=== PATIENT | female | born 1955 | race Caucasian/White ===

== ENCOUNTER 2020-08-28 13:17 | Emergency (ER) | payer MEDICARE ==
--- NOTE | 2020-08-28 13:29 | EDM.PDOC ---
ED HPI GENERAL MEDICAL PROBLEM - General Chief Complaint: Behavioral/Psych Stated Complaint: SUICIDE Time Seen by Provider: 08/28/20 13:18 Source of Information: Reports: Patient History Limitations: Reports: No Limitations - History of Present Illness INITIAL COMMENTS - FREE TEXT/NARRATIVE: She is a 65-year-old female who presents today after an attempted overdose. Patient pills that include gabapentin amitriptyline Xanax and memantine donepezil and hydrochlorothiazide overall 12 hours ago. Patient's been assessed the past of her . Patient presents today with his complaints of feeling tired but did not see any nausea vomiting no other complaints. - Related Data Allergies Allergy/AdvReac Type Severity Reaction Status Date / Time codeine Allergy Other Verified 08/28/20 13:52 Home Meds: Home Meds ALPRAZolam [Alprazolam] 0.25 mg PO DAILY PRN 08/28/20 [History] Amitriptyline [Elavil] 10 mg PO BEDTIME 08/28/20 [History] Donepezil HCl 5 mg PO BEDTIME 08/28/20 [History] Memantine HCl [Namenda] 5 mg PO DAILY 08/28/20 [History] PARoxetine HCL [Paroxetine HCl] 10 mg PO DAILY 08/28/20 [History] hydroCHLOROthiazide [Hydrochlorothiazide] 25 mg PO DAILY 08/28/20 [History] ED ROS GENERAL - Review of Systems Review Of Systems: See Below Constitutional: Reports: Fatigue HEENT: Reports: No Symptoms Respiratory: Reports: No Symptoms Cardiovascular: Reports: No Symptoms Endocrine: Reports: No Symptoms GI/Abdominal: Reports: No Symptoms : Reports: No Symptoms Musculoskeletal: Reports: No Symptoms Skin: Reports: No Symptoms Neurological: Reports: No Symptoms Psychiatric: Reports: No Symptoms Hematologic/Lymphatic: Reports: No Symptoms Immunologic: Reports: No Symptoms ED EXAM, GENERAL - Physical Exam Exam: See Below Exam Limited By: No Limitations General Appearance: Alert, WD/WN, No Apparent Distress Eye Exam: Bilateral Eye: EOMI, PERRL Respiratory/Chest: No Respiratory Distress, Lungs Clear, Normal Breath Sounds Cardiovascular: Normal Peripheral Pulses, Regular Rate, Rhythm GI/Abdominal: Normal Bowel Sounds, Soft, Non-Tender Extremities: Normal Range of Motion Neurological: Alert, Oriented, CN II-XII Intact #1 Interpretation EKG Date: 08/28/20 Time: 13:15 Rhythm: NSR Rate (Beats/Min): 79 ST-T: Normal #2 Interpretation EKG Date: 08/28/20 Time: 13:35 Rhythm: NSR Rate (Beats/Min): 76 ST-T: Normal Course - Vital Signs Last Recorded V/S: Last Vital Signs Temp 98 F 08/28/20 16:19 Pulse 76 08/28/20 17:23 Resp 16 08/28/20 16:51 BP 129/66 08/28/20 17:23 Pulse Ox 92 L 08/28/20 17:23 - Orders/Labs/Meds Orders: Active Orders 24 hr Category Date Time Status EKG Documentation Completion [RC] STAT Care 08/28/20 13:19 Active Labs: Laboratory Tests 08/28/20 08/28/20 08/28/20 Range/Units 13:31 13:31 13:31 WBC 6.33 (4.0-11.0) K/uL RBC 4.90 (4.30-5.90) M/uL Hgb 14.6 (12.0-16.0) g/dL Hct 46.0 (36.0-46.0) % MCV 93.9 (80.0-98.0) fL MCH 29.8 (27.0-32.0) pg MCHC 31.7 (31.0-37.0) g/dL RDW Std Deviation 47.6 (28.0-62.0) fl RDW Coeff of Marybeth 14 (11.0-15.0) % Plt Count 218 (150-400) K/uL MPV 10.50 (7.40-12.00) fL Neut % (Auto) 74.6 (48.0-80.0) % Lymph % (Auto) 15.0 L (16.0-40.0) % Baxter % (Auto) 7.1 (0.0-15.0) % Eos % (Auto) 3.0 (0.0-7.0) % Baso % (Auto) 0.3 (0.0-1.5) % Neut # (Auto) 4.7 (1.4-5.7) K/uL Lymph # (Auto) 1.0 (0.6-2.4) K/uL Baxter # (Auto) 0.5 (0.0-0.8) K/uL Eos # (Auto) 0.2 (0.0-0.7) K/uL Baso # (Auto) 0.0 (0.0-0.1) K/uL Nucleated RBC % 0.0 /100WBC Nucleated RBCs # 0 K/uL Lactate 2.3 H* (0.20-2.00) mmol/L Sodium 139 (136-145) mmol/L Potassium 3.8 (3.5-5.1) mmol/L Chloride 102 (98-107) mmol/L Carbon Dioxide 28.7 (21.0-32.0) mmol/L BUN 20 H (7.0-18.0) mg/dL Creatinine 1.2 H (0.6-1.0) mg/dL Est Cr Clr Drug Dosing 44.24 mL/min Estimated GFR (MDRD) 44.8 ml/min Glucose 115 H (74-106) mg/dL Calcium 8.9 (8.5-10.1) mg/dL Phosphorus 3.4 (2.6-4.7) mg/dL Magnesium 2.0 (1.8-2.4) mg/dL Total Bilirubin 0.4 (0.2-1.0) mg/dL AST 16 (15-37) IU/L ALT 24 (14-63) IU/L Alkaline Phosphatase 95 (46-116) U/L Creatine Kinase 79 (26-308) U/L Total Protein 7.3 (6.4-8.2) g/dL Albumin 3.2 L (3.4-5.0) g/dL Globulin 4.1 H (2.6-4.0) g/dL Albumin/Globulin Ratio 0.8 L (0.9-1.6) Salicylates 2.1 (0-20) mg/dL Urine Opiates Screen (NEGATIVE) Ur Oxycodone Screen (NEGATIVE) Urine Methadone Screen (NEGATIVE) Acetaminophen <2.0 ug/mL Ur Barbiturates Screen (NEGATIVE) Ur Phencyclidine Scrn (NEGATIVE) Ur Amphetamine Screen (NEGATIVE) U Methamphetamines Scrn (NEGATIVE) U Benzodiazepines Scrn (NEGATIVE) U Cocaine Metab Screen (NEGATIVE) U Marijuana (THC) Screen (NEGATIVE) Ethyl Alcohol < 3.0 mg/dL SARS-CoV-2 RNA (NATALIA) (NEGATIVE) 08/28/20 08/28/20 Range/Units 13:50 13:50 WBC (4.0-11.0) K/uL RBC (4.30-5.90) M/uL Hgb (12.0-16.0) g/dL Hct (36.0-46.0) % MCV (80.0-98.0) fL MCH (27.0-32.0) pg MCHC (31.0-37.0) g/dL RDW Std Deviation (28.0-62.0) fl RDW Coeff of Marybeth (11.0-15.0) % Plt Count (150-400) K/uL MPV (7.40-12.00) fL Neut % (Auto) (48.0-80.0) % Lymph % (Auto) (16.0-40.0) % Baxter % (Auto) (0.0-15.0) % Eos % (Auto) (0.0-7.0) % Baso % (Auto) (0.0-1.5) % Neut # (Auto) (1.4-5.7) K/uL Lymph # (Auto) (0.6-2.4) K/uL Baxter # (Auto) (0.0-0.8) K/uL Eos # (Auto) (0.0-0.7) K/uL Baso # (Auto) (0.0-0.1) K/uL Nucleated RBC % /100WBC Nucleated RBCs # K/uL Lactate (0.20-2.00) mmol/L Sodium (136-145) mmol/L Potassium (3.5-5.1) mmol/L Chloride (98-107) mmol/L Carbon Dioxide (21.0-32.0) mmol/L BUN (7.0-18.0) mg/dL Creatinine (0.6-1.0) mg/dL Est Cr Clr Drug Dosing mL/min Estimated GFR (MDRD) ml/min Glucose (74-106) mg/dL Calcium (8.5-10.1) mg/dL Phosphorus (2.6-4.7) mg/dL Magnesium (1.8-2.4) mg/dL Total Bilirubin (0.2-1.0) mg/dL AST (15-37) IU/L ALT (14-63) IU/L Alkaline Phosphatase (46-116) U/L Creatine Kinase (26-308) U/L Total Protein (6.4-8.2) g/dL Albumin (3.4-5.0) g/dL Globulin (2.6-4.0) g/dL Albumin/Globulin Ratio (0.9-1.6) Salicylates (0-20) mg/dL Urine Opiates Screen NEGATIVE (NEGATIVE) Ur Oxycodone Screen NEGATIVE (NEGATIVE) Urine Methadone Screen NEGATIVE (NEGATIVE) Acetaminophen ug/mL Ur Barbiturates Screen NEGATIVE (NEGATIVE) Ur Phencyclidine Scrn NEGATIVE (NEGATIVE) Ur Amphetamine Screen NEGATIVE (NEGATIVE) U Methamphetamines Scrn NEGATIVE (NEGATIVE) U Benzodiazepines Scrn POSITIVE (NEGATIVE) U Cocaine Metab Screen NEGATIVE (NEGATIVE) U Marijuana (THC) Screen NEGATIVE (NEGATIVE) Ethyl Alcohol mg/dL SARS-CoV-2 RNA (NATALIA) NEGATIVE (NEGATIVE) Meds: Medications Discontinued Medications Generic Name Dose Route Start Last Admin Trade Name Freq PRN Reason Stop Dose Admin Cephalexin 500 mg 08/28/20 14:35 08/28/20 14:44 Cephalexin 500 Mg Cap PO 08/28/20 14:36 Not Given ONETIME ONE Sodium Chloride 1,000 mls @ 1,000 mls/hr 08/28/20 14:17 08/28/20 14:22 Normal Saline IV 08/28/20 15:16 1,000 mls/hr .Bolus ONE Administration Trimethoprim/Sulfamethoxazole 1 tab 08/28/20 14:35 08/28/20 14:44 Sulfamethoxazole/Trimethoprim 800-160 Mg Tab PO 08/28/20 14:36 Not Given ONETIME ONE - Re-Assessments/Exams Free Text/Narrative Re-Assessment/Exam: 08/28/20 17:35 Patient is medically clear she has been observed in the ER for the recommended stated time by the poison control. Patient is at her baseline talking has no complaints vital signs remained stable as well. Departure - Departure Time of Disposition: 17:35 Disposition: DC/Tfer to Psych Hosp/Unit 65 Condition: Good Clinical Impression: Suicidal ideation - Discharge Information *PRESCRIPTION DRUG MONITORING PROGRAM REVIEWED*: Not Applicable *COPY OF PRESCRIPTION DRUG MONITORING REPORT IN PATIENT DAVIDE: Not Applicable Referrals: Fannie Longoria [Other] Saad Burnett MD [Primary Care Provider] - Forms: ED Department Discharge Sepsis Event Note (ED) - Focused Exam Vital Signs: Vital Signs Temp Pulse Resp BP Pulse Ox 08/28/20 17:23 76 129/66 92 L 08/28/20 16:51 76 16 129/66 92 L 08/28/20 16:19 98 F 71 14 137/53 L 97 08/28/20 15:49 71 16 145/68 H 98 08/28/20 15:19 70 16 138/70 99 08/28/20 15:04 72 16 132/73 99 08/28/20 14:34 72 16 126/64 100 08/28/20 14:04 71 16 133/66 96 08/28/20 13:37 72 16 158/86 H 95 08/28/20 13:17 97.3 F 82 16 133/72 89 L - My Orders Last 24 Hours: My Active Orders 08/28/20 13:19 EKG Documentation Completion [RC] STAT - Assessment/Plan Last 24 Hours: My Active Orders 08/28/20 13:19 EKG Documentation Completion [RC] STAT Plan: 65-year-old female who presents today for attempted overdose on a number of pills. Is unclear of any pills the patient took so she said there most bottles were filled to the top. EMS states that most of the pill bottles were empty. We spoke to poison control who states that if the amitriptyline symptoms have not shown up in 4 to 6 hours that she likely did not take a significant amount. The recommended serving patient and replete any electrolytes as needed. Patient will be placed on a one-to-one and likely transfer to a psychiatric facility for evaluation.
[2020-08-28 14:07] LABS: ACETAMINOPHEN <2.0 ug/mL; BLOOD UREA NITROGEN,BUN 20 mg/dL (7.0-18.0); CARBON DIOXIDE,CO2 28.7 mmol/L (21.0-32.0); CHLORIDE,CL 102 mmol/L (98-107); GLUCOSE RANDOM 115 mg/dL (74-106); POTASSIUM,K 3.8 mmol/L (3.5-5.1); SODIUM,NA 139 mmol/L (136-145)
[2020-08-28] MEDS ORDERED: Sodium Chloride 0.9% 1,000 ML IV ONE (14:17)
[2020-08-28] MEDS ORDERED: Cephalexin 500 MG Cap PO ONE (14:35)
[2020-08-28] MEDS ORDERED: Sulfamethoxazole/Trimethoprim 800-160 MG Tab PO ONE (14:35)
== END 2020-08-28 19:25 ==
LOC: MW.ED 13:17
DX: R45.851 Suicidal ideations (principal); R53.83 Other fatigue; Z88.5 Allergy status to narcotic agent; Z20.822 Contact with and (suspected) exposure to COVID-19
CPT/HCPCS: 36415; 80053; 80143; 80179; 80305; 80307; 82550; 83605; 83735; 84100; 85025; 93005; 99285; J7030; U0002; 93010

== ENCOUNTER 2021-01-06 12:35 | Emergency (ER) | payer MEDICARE ==
--- NOTE | 2021-01-06 13:22 | PCM.EKG ---
#1 Interpretation EKG Date: 01/06/21 Time: 12:48 Rhythm: NSR Rate (Beats/Min): 79 [place]: Normal P-Wave: Present QRS: Normal ST-T: Other (T inversions inferiorly) QT: Normal
[2021-01-06 13:46] LABS: BLOOD UREA NITROGEN,BUN 26 mg/dL (7.0-18.0); CARBON DIOXIDE,CO2 29.6 mmol/L (21.0-32.0); CHLORIDE,CL 107 mmol/L (98-107); GLUCOSE RANDOM 93 mg/dL (74-106); POTASSIUM,K 4.3 mmol/L (3.5-5.1); SODIUM,NA 142 mmol/L (136-145)
--- NOTE | 2021-01-06 13:47 | EDM.PDOC ---
ED HPI GENERAL MEDICAL PROBLEM - General Chief Complaint: Lower Extremity Injury/Pain Stated Complaint: SWELLING Time Seen by Provider: 01/06/21 12:59 Source of Information: Reports: Patient, Other (Daughter) History Limitations: Reports: No Limitations - History of Present Illness INITIAL COMMENTS - FREE TEXT/NARRATIVE: Presents with her daughter. Her daughter reports that over the last week or so she has developed peripheral edema which seems to be spreading up her body to her thighs, abdomen, hands and then neck and face. She has maybe had a little shortness of breath off and on. Her daughter has noticed some weight gain. 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 Aside from the issues related to her chronic brain atrophy and dementia she has no medical problems. No chest pain, abdominal pain, nausea, vomiting, diarrhea, headache. - Related Data Allergies Allergy/AdvReac Type Severity Reaction Status Date / Time codeine Allergy Other Verified 01/06/21 12:49 Home Meds: Home Meds Donepezil HCl 10 mg PO BEDTIME 08/28/20 [History] Memantine HCl [Namenda] 5 mg PO DAILY 08/28/20 [History] PARoxetine HCL [Paroxetine HCl] 10 mg PO DAILY 08/28/20 [History] hydroCHLOROthiazide [Hydrochlorothiazide] 25 mg PO DAILY 08/28/20 [History] Aspirin [Ecotrin EC] 325 mg PO DAILY 01/06/21 [History] Divalproex Sodium [Depakote] 250 mg PO BEDTIME 01/06/21 [History] Pregabalin 150 mg PO BID 01/06/21 [History] hydrOXYzine pamoate [Hydroxyzine Pamoate] 100 mg PO BEDTIME 01/06/21 [History] traMADol HCl [Tramadol HCl] 50 mg PO TID PRN 01/06/21 [History] Past Medical History HEENT History: Reports: Impaired Vision Cardiovascular History: Reports: None Respiratory History: Reports: None Gastrointestinal History: Reports: None Genitourinary History: Reports: Renal Calculus, Other (See Below) Other Genitourinary History: stage two kidney disease [employer] History: Reports: None Musculoskeletal History: Reports: Arthritis, Other (See Below) Other Musculoskeletal History: scolosis Neurological History: Reports: Cerebral Aneurysms Other Neuro History: Multiple aneurysms Psychiatric History: Reports: Anxiety, Dementia, Depression Endocrine/Metabolic History: Reports: None Hematologic History: Reports: None Immunologic History: Reports: None Oncologic (Cancer) History: Reports: None Dermatologic History: Reports: None - Infectious Disease History Infectious Disease History: Reports: Chicken Pox - Past Surgical History Head Surgeries/Procedures: Reports: None Cardiovascular Surgical History: Reports: None Respiratory Surgical History: Reports: None GI Surgical History: Reports: None Female Surgical History: Reports: None Endocrine Surgical History: Reports: None Neurological Surgical History: Reports: None Musculoskeletal Surgical History: Reports: Other (See Below) Oncologic Surgical History: Reports: None Dermatological Surgical History: Reports: None Social & Family History - Family History Family Medical History: No Pertinent Family History - Tobacco Use Tobacco Use Status *Q: Former Tobacco User Used Tobacco, but Quit: Yes Month/Year Tobacco Last Used: 2001 Second Hand Smoke Exposure: No - Caffeine Use Caffeine Use: Reports: None - Recreational Drug Use Recreational Drug Use: No ED ROS GENERAL - Review of Systems Review Of Systems: Comprehensive ROS is negative, except as noted in HPI. ED EXAM, GENERAL - Physical Exam Exam: See Below Exam Limited By: No Limitations General Appearance: Alert, No Apparent Distress Ears: Normal External Exam Nose: Normal Inspection Throat/Mouth: Normal Inspection, Normal Oropharynx, Other (no swelling) Head: Atraumatic, Normocephalic Neck: Normal Inspection, Other (No swelling) Respiratory/Chest: No Respiratory Distress, Lungs Clear, Normal Breath Sounds Cardiovascular: Normal Peripheral Pulses, Regular Rate, Rhythm, No Murmur GI/Abdominal: Soft, Non-Tender, No Distention Extremities: Other (2+ pitting edema from dorsal foot to knees. No edema of the hands, abdomen, neck or face) Neurological: Alert, Oriented, Normal Cognition (slow but appropriate responses at times--baseline) Psychiatric: Normal Affect, Normal Mood Skin Exam: Warm, Dry, Intact, Normal Color, No Rash Lymphatic: No Adenopathy Course - Vital Signs Text/Narrative:: In the emergency room on the supplemental oxygen was removed. The patient had no subjective shortness of breath and no dyspnea. Her oxygen saturations wavered between 89 and 93% on room air over the course of an hour. She denied any symptoms. She has an appointment with her primary provider on . At that appointment she will discuss the 2.8 cm lobulated soft tissue mass in the left lower thorax noted on the chest x-ray. Last Recorded V/S: Last Vital Signs Temp 36.9 C 01/06/21 12:44 Pulse 68 01/06/21 14:36 Resp 17 01/06/21 14:36 BP 140/47 L 01/06/21 14:36 Pulse Ox 92 L 01/06/21 14:37 - Orders/Labs/Meds Orders: Active Orders 24 hr Category Date Time Status EKG Documentation Completion [RC] STAT Care 01/06/21 13:16 Ordered Labs: Laboratory Tests 01/06/21 01/06/21 01/06/21 Range/Units 10:48 10:48 10:48 WBC 6.25 (4.0-11.0) K/uL RBC 4.74 (4.30-5.90) M/uL Hgb 13.7 (12.0-16.0) g/dL Hct 42.3 (36.0-46.0) % MCV 89.2 (80.0-98.0) fL MCH 28.9 (27.0-32.0) pg MCHC 32.4 (31.0-37.0) g/dL RDW Std Deviation 48.1 (28.0-62.0) fl RDW Coeff of Marybeht 15 (11.0-15.0) % Plt Count 218 (150-400) K/uL MPV 10.90 (7.40-12.00) fL Neut % (Auto) 64.4 (48.0-80.0) % Lymph % (Auto) 20.2 (16.0-40.0) % Mayes % (Auto) 9.1 (0.0-15.0) % Eos % (Auto) 5.8 (0.0-7.0) % Baso % (Auto) 0.5 (0.0-1.5) % Neut # (Auto) 4.0 (1.4-5.7) K/uL Lymph # (Auto) 1.3 (0.6-2.4) K/uL Mayes # (Auto) 0.6 (0.0-0.8) K/uL Eos # (Auto) 0.4 (0.0-0.7) K/uL Baso # (Auto) 0.0 (0.0-0.1) K/uL Nucleated RBC % 0.0 /100WBC Nucleated RBCs # 0 K/uL Sodium 142 (136-145) mmol/L Potassium 4.3 (3.5-5.1) mmol/L Chloride 107 (98-107) mmol/L Carbon Dioxide 29.6 (21.0-32.0) mmol/L BUN 26 H (7.0-18.0) mg/dL Creatinine 1.3 H (0.6-1.0) mg/dL Est Cr Clr Drug Dosing 40.84 mL/min Estimated GFR (MDRD) 40.9 ml/min Glucose 93 (74-106) mg/dL Calcium 8.4 L (8.5-10.1) mg/dL Total Bilirubin 0.3 (0.2-1.0) mg/dL AST 25 (15-37) IU/L ALT 29 (14-63) IU/L Alkaline Phosphatase 81 (46-116) U/L Troponin I < 0.050 (0.000-0.056) ng/mL B-Natriuretic Peptide 55 (<100) PG/ML Total Protein 6.7 (6.4-8.2) g/dL Albumin 3.3 L (3.4-5.0) g/dL Globulin 3.4 (2.6-4.0) g/dL Albumin/Globulin Ratio 1.0 (0.9-1.6) Urine Color Urine Appearance Urine pH (5.0-8.0) Ur Specific Wain[place] (1.001-1.035) Urine Protein (NEGATIVE) mg/dL Urine Glucose (UA) (NEGATIVE) mg/dL Urine Ketones (NEGATIVE) mg/dL Urine Occult Blood (NEGATIVE) Urine Nitrite (NEGATIVE) Urine Bilirubin (NEGATIVE) Urine Urobilinogen (<2.0) EU/dL Ur Leukocyte Esterase (NEGATIVE) Influenza Type A RNA (NEGATIVE) Influenza Type B RNA (NEGATIVE) SARS-CoV-2 RNA (NATALIA) (NEGATIVE) 01/06/21 01/06/21 Range/Units 12:48 14:46 WBC (4.0-11.0) K/uL RBC (4.30-5.90) M/uL Hgb (12.0-16.0) g/dL Hct (36.0-46.0) % MCV (80.0-98.0) fL MCH (27.0-32.0) pg MCHC (31.0-37.0) g/dL RDW Std Deviation (28.0-62.0) fl RDW Coeff of Marybeth (11.0-15.0) % Plt Count (150-400) K/uL MPV (7.40-12.00) fL Neut % (Auto) (48.0-80.0) % Lymph % (Auto) (16.0-40.0) % Mayes % (Auto) (0.0-15.0) % Eos % (Auto) (0.0-7.0) % Baso % (Auto) (0.0-1.5) % Neut # (Auto) (1.4-5.7) K/uL Lymph # (Auto) (0.6-2.4) K/uL Mayes # (Auto) (0.0-0.8) K/uL Eos # (Auto) (0.0-0.7) K/uL Baso # (Auto) (0.0-0.1) K/uL Nucleated RBC % /100WBC Nucleated RBCs # K/uL Sodium (136-145) mmol/L Potassium (3.5-5.1) mmol/L Chloride (98-107) mmol/L Carbon Dioxide (21.0-32.0) mmol/L BUN (7.0-18.0) mg/dL Creatinine (0.6-1.0) mg/dL Est Cr Clr Drug Dosing mL/min Estimated GFR (MDRD) ml/min Glucose (74-106) mg/dL Calcium (8.5-10.1) mg/dL Total Bilirubin (0.2-1.0) mg/dL AST (15-37) IU/L ALT (14-63) IU/L Alkaline Phosphatase (46-116) U/L Troponin I (0.000-0.056) ng/mL B-Natriuretic Peptide (<100) PG/ML Total Protein (6.4-8.2) g/dL Albumin (3.4-5.0) g/dL Globulin (2.6-4.0) g/dL Albumin/Globulin Ratio (0.9-1.6) Urine Color YELLOW Urine Appearance CLEAR Urine pH 8.5 H (5.0-8.0) Ur Specific [place] 1.020 (1.001-1.035) Urine Protein NEGATIVE (NEGATIVE) mg/dL Urine Glucose (UA) NEGATIVE (NEGATIVE) mg/dL Urine Ketones NEGATIVE (NEGATIVE) mg/dL Urine Occult Blood NEGATIVE (NEGATIVE) Urine Nitrite NEGATIVE (NEGATIVE) Urine Bilirubin NEGATIVE (NEGATIVE) Urine Urobilinogen 1.0 (<2.0) EU/dL Ur Leukocyte Esterase NEGATIVE (NEGATIVE) Influenza Type A RNA NEGATIVE (NEGATIVE) Influenza Type B RNA NEGATIVE (NEGATIVE) SARS-CoV-2 RNA (NATALIA) NEGATIVE (NEGATIVE) Meds: Medications Discontinued Medications Generic Name Dose Route Start Last Admin Trade Name Freq PRN Reason Stop Dose Admin Furosemide 20 mg 01/06/21 14:27 01/06/21 15:42 Furosemide 40 Mg/4 Ml Vial IVPUSH 01/06/21 14:28 Not Given NOW ONE Departure - Departure Time of Disposition: 15:47 Disposition: Home, Self-Care 01 Condition: Good Clinical Impression: Peripheral edema Referrals: Saad Burnett MD [Primary Care Provider] - Forms: ED Department Discharge Additional Instructions: The following information is given to patients seen in the emergency department who are being discharged to home. This information is to outline your options for follow-up care. We provide all patients seen in our emergency department with a follow-up referral. The need for follow-up, as well as the timing and circumstances, are variable depending upon the specifics of your emergency department visit. If you don't have a primary care physician on staff, we will provide you with a referral. We always advise you to contact your personal physician following an emergency department visit to inform them of the circumstance of the visit and for follow-up with them and/or the need for any referrals to a consulting specialist. The emergency department will also refer you to a specialist when appropriate. This referral assures that you have the opportunity for follow-up care with a specialist. All of these measure are taken in an effort to provide you with optimal care, which includes your follow-up. Under all circumstances we always encourage you to contact your private physician who remains a resource for coordinating your care. When calling for follow-up care, please make the office aware that this follow-up is from your recent emergency room visit. If for any reason you are refused follow-up, please contact the [facility] Emergency Department at and asked to speak to the emergency department charge nurse. 1. Keep your appointment with your primary provider Dr. Burnett as previously scheduled on 2. Discuss your x-ray findings at your appointment. 3. Discuss your lab findings at your appointment. 4. Measurement by nursing staff at clinic appointment for compression hose. Sepsis Event Note (ED) - Evaluation Sepsis Screening Result: No Definite Risk - Focused Exam Vital Signs: Vital Signs Temp Pulse Resp BP Pulse Ox 01/06/21 14:37 92 L 01/06/21 14:36 68 17 140/47 L 90 L 01/06/21 12:44 36.9 C 80 18 101/48 L 85 L - My Orders Last 24 Hours: My Active Orders 01/06/21 13:16 EKG Documentation Completion [RC] STAT - Assessment/Plan Last 24 Hours: My Active Orders 01/06/21 13:16 EKG Documentation Completion [RC] STAT
[2021-01-06 13:48] LABS: CORONAVIRUS COVID-19 NAA NEGATIVE (NEGATIVE); INFLUENZA A NAA NEGATIVE (NEGATIVE); INFLUENZA B NAA NEGATIVE (NEGATIVE)
[2021-01-06] MEDS ORDERED: Furosemide 40 MG/4 ML VIAL IVPUSH ONE (14:27)
--- NOTE | 2021-01-06 14:51 | CR ---
INDICATION: Hypoxemia. Comparison: None. TECHNIQUE: Two-view chest. FINDINGS: Normal size cardiac silhouette. Possible infiltrates lower lobe right lung. A 2.8 cm lobulated soft tissue projecting over the left lower thorax; rule out loculated pleural effusion. No evidence of CHF. Impression: A 2.8 cm lobulated soft tissue projecting over the left lower thorax; suggest obtaining a chest CT for further assessment. 1. Possible infiltrates right lower lobe. Dictated by Abi Benson MD @ 01/06/2021 2:48:[address] Abi Benson @ Jan 06 2021 2:48PM
== END 2021-01-06 15:56 | disposition home or self-care (01) ==
LOC: MW.ED 12:35
DX: R60.0 Localized edema (principal); M19.90 Unspecified osteoarthritis, unspecified site; F03.90 Unspecified dementia, unspecified severity, without behavioral disturbance, psychotic disturbance, mood disturbance, and anxiety; Z87.891 Personal history of nicotine dependence; Z88.5 Allergy status to narcotic agent; Z79.899 Other long term (current) drug therapy; Z20.822 Contact with and (suspected) exposure to COVID-19
CPT/HCPCS: 0240U; 36415; 71046; 80053; 81003; 83880; 84484; 85025; 93005; 99284

== ENCOUNTER 2021-11-22 03:38 | Emergency (ER) | payer MEDICARE ==
[2021-11-22] MEDS ORDERED: Morphine 4 MG/ML VIAL IVPUSH ONE ×2 (03:52→07:20)
[2021-11-22] MEDS ORDERED: Ondansetron 4 MG/2 ML SDV IVPUSH ONE (04:07)
[2021-11-22 05:05] LABS: CARBON DIOXIDE,CO2 26.5 mmol/L (21.0-32.0); POTASSIUM,K 3.8 mmol/L (3.5-5.1)
== END 2021-11-22 08:00 | disposition home or self-care (01) ==
LOC: MW.ED 03:38
DX: R10.84 Generalized abdominal pain (principal); Z79.899 Other long term (current) drug therapy; Z79.82 Long term (current) use of aspirin; Z88.5 Allergy status to narcotic agent
CPT/HCPCS: 36415; 74176; 80053; 81003; 83690; 85025; 93005; 96374; 96375; 96376; 99284; J2270; J2405; 93010

== ENCOUNTER 2022-03-13 23:24 | Emergency (ER) | payer MEDICARE ==
[2022-03-14 00:48] LABS: CARBON DIOXIDE,CO2 29.7 mmol/L (21.0-32.0); POTASSIUM,K 4.9 mmol/L (3.5-5.1)
== END 2022-03-14 02:18 | disposition home or self-care (01) ==
LOC: MW.ED 23:24
DX: R60.0 Localized edema (principal); Z88.5 Allergy status to narcotic agent; Z79.899 Other long term (current) drug therapy; Z79.82 Long term (current) use of aspirin; Z20.822 Contact with and (suspected) exposure to COVID-19
CPT/HCPCS: 36415; 71045; 74176; 80053; 83880; 84484; 85025; 93005; 99284; U0002; 93010